=== PATIENT | male | born 1980 | race Caucasian/White ===

== ENCOUNTER 2021-06-10 10:55 | Emergency (ER) | payer OTHER ==
[2021-06-10 13:23] LABS: Absolute Lymphocytes (CBC) 1.8 K/uL (0.7-4.9); Hematocrit 44.8 % (39.6-49.0); Lymphocytes % 24.9 % (15.3-44.8); MPV 8.3 fL (7.6-11.3); RBC Red Blood Cell Count 5.15 M/uL (4.33-5.43)
[2021-06-10 13:33] LABS: Protime INR 1.03
[2021-06-10 13:46] LABS: Potassium 4.2 mmol/L (3.5-5.1)
--- NOTE | 2021-06-10 13:48 | RAD REPORT ---
EXAM DESCRIPTION: CT - Head Brain Wo Cont - 06/10/2021 1:24 pm CLINICAL HISTORY: Headache COMPARISON: None. TECHNIQUE: Axial 5 mm thick images of the head were obtained without IV contrast. All CT scans are performed using dose optimization technique as appropriate and may include automated exposure control or mA/KV adjustment according to patient size. FINDINGS: An intracranial bleed is not seen. Approximately 13 millimeter mass is present within the sella turcica extending superiorly. Ventricles are normal caliber. No extra-axial fluid collection. Chronic maxillary sinusitis. Fluid within the sinuses/mastoids is not seen IMPRESSION: 13 millimeter sellar/suprasellar mass. It is recommended that the patient have a nonemer gent MRI pituitary gland for further evaluation
[2021-06-10] MEDS ORDERED: ACETAMINOPHEN 500 MG TAB ONE (14:03)
[2021-06-10] MEDS ORDERED: NA CHLORIDE 0.9% 1,000 ML ONE (14:03)
[2021-06-10] MEDS ORDERED: KETOROLAC 30 MG/ML INJ ONE (15:55)
--- NOTE | 2021-06-10 17:04 | RAD REPORT ---
EXAM DESCRIPTION: MRI - Brain Wo Cont - 06/10/2021 3:13 pm CLINICAL HISTORY: headache COMPARISON: Head CT June 10, 2021 TECHNIQUE: Axial, sagittal, and coronal magnetic resonance images of the brain were obtained. FINDINGS: 14 millimeter structure is present within the sella turcica extending superiorly. It has h igh signal on T1 weighted sequences. It has high signal on T2 weighted sequences. Without IV contrast is difficult to determine normal pituitary gland from mass. Diffusion-weighted/ADC mapping does not reveal evidence of acute infarction. The ventricles are normal caliber. An extra-axial fluid collection is not noted. Fluid within the sinuses/mastoids is not seen. Mucus retention cysts within the maxillary sinuses. 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 Other consi derations include cystic pituitary macroadenoma and craniopharyngioma . Nonemergent MRI of the pituitary gland recommended for further evaluation
--- NOTE | 2021-06-10 17:26 | ER ---
Nurse's Notes [facility] Name: Haris Dan Age: 40 yrs Sex: Male : 1980 Arrival Date: 06/10/2021 Time: 10:57 Bed Treatment Private MD: Diagnosis: Headache;Sellar/Suprasellar mass Presentation: 06/10 11:27 Chief complaint: Patient states: Pt amb to triage w c/o extreme headache and light ic1 sensitivity since Monday. Also c/o nausea and R lateral side neck soreness. Denies emesis. Coronavirus screen: Vaccine status: Patient reports being unvaccinated. Ebola Screen: No symptoms or risks identified at this time. Initial Sepsis Screen: Does the patient meet any 2 criteria? No. Patient's initial sepsis screen is negative. Does the patient have a suspected source of infection? No. Patient's initial sepsis screen is negative. Risk Assessment: Do you want to hurt yourself or someone else? Patient reports no desire to harm self or others. Onset of symptoms is unknown. 11:27 Method Of Arrival: Ambulatory ic1 11:27 Acuity: JAMEL 3 ic1 Triage Assessment: 11:28 Headache History: Denies prior headaches. General: Appears in no apparent distress. ic1 Behavior is calm, cooperative. Pain: Pain currently is 4 out of 10 on a pain scale. Pain began 4-5 days ago. Neuro: Level of Consciousness is awake, alert, obeys commands, Oriented to person, place, time, situation. 17:43 Pain: Also complains of no other associated symptoms. ld1 Historical: - Allergies: 11:28 No Known Allergies; ic1 - Home Meds: 11:28 Synthroid Oral once daily [Active]; Nexium Oral 1 cap once daily [Active]; ic1 - Immunization history:: Adult Immunizations up to date. - Social history:: Smoking status: Patient reports use of chewing tobacco. Screenin:14 Abuse screen: Denies threats or abuse. Denies injuries from another. Nutritional ic1 screening: No deficits noted. Tuberculosis screening: No symptoms or risk factors identified. Fall Risk None identified. Assessment: 13:38 Reassessment: Patient appears in no apparent distress at this time. Patient is alert, ic1 oriented x 3, equal unlabored respirations, skin warm/dry/pink. Returned back to room from CT. Patient denies pain at this time. Vital Signs: 11:26 BP 151 / 90; Pulse 74; Resp 18; Temp 98.5(O); Pulse Ox 99% ; ic1 Visual Acuity: 14:09 Left Eye Visual acuity 20/20, Pupil size 3 mm, Normal, Brisk; Right Eye Visual acuity ic1 20/25, Pupil size 3 mm, Normal, Brisk; Both Eyes Visual acuity 20/20; Without Lenses; ED Course: 10:57 Patient arrived in ED. as 11:28 Triage completed. ic1 11:30 Arm band placed on right wrist. ic1 12:55 Galo Garcia PA is PHCP. cp 12:55 Isael Manzanares MD is Attending Physician. cp 13:14 Call light in reach. ic1 13:14 BMP Sent. ic1 13:14 PT-INR Sent. ic1 13:14 CBC with Diff Sent. ic1 13:14 Inserted saline lock: 20 gauge in left antecubital area, using aseptic technique. Blood ic1 collected. 13:24 CT Head Brain wo Cont In Process Unspecified. EDMS 15:10 MRI - Brain Wo Cont: pituitary mass In Process Unspecified. EDMS 17:42 IV discontinued, intact, bleeding controlled, No redness/swelling at site. Pressure ic1 dressing applied. 17:43 No provider procedures requiring assistance completed. ld1 Administered Medications: 13:58 CANCELLED (Physician Discretion): Ketorolac 30 mg IVP once cp 14:08 Drug: NS 0.9% 1000 ml Route: IV; Rate: 1 bolus; Site: left antecubital; ic1 14:08 Drug: Tylenol 1000 mg Route: PO; ic1 15:56 Drug: Ketorolac 30 mg Route: IVP; Site: left antecubital; ic1 Outcome: 17:26 Discharge ordered by . cp 17:42 Discharged to home ambulatory. ic1 17:42 Condition: stable 17:42 Discharge instructions given to patient, Instructed on discharge instructions, follow up and referral plans. Demonstrated understanding of instructions, follow-up care, medications, Prescriptions given X 17:45 Patient left the ED. ld1 Signatures: Dispatcher [employer] EDMS Karuna Santillan as Galo Garcia PA PA cp Nanette Lake RN RN ld1 Creggett, Idalmis, RN RN ic1
--- NOTE | 2021-06-10 17:26 | EDPHYS ---
Physician Documentation [facility] Name: Haris Dan Age: 40 yrs Sex: Male : 1980 Arrival Date: 06/10/2021 Time: 10:57 Bed Treatment Private MD: ED Physician Isael Manzanares HPI: 06/10 13:15 This 40 yrs old Male presents to ER via Ambulatory with complaints of Headache. cp 13:15 The patient complains of pain to the top of head and back of head. The patient cp describes the headache as aching. Onset: The symptoms/episode began/occurred 4 day(s) ago. 13:15 Associated signs and symptoms: Pertinent positives: Photophobia Pertinent negatives: cp altered mental status, fever, neck stiffness, paresthesias, sinus congestion, sinus tenderness, vision loss, vomiting, weakness. Severity of symptoms: in the emergency department the pain is unchanged, despite home interventions. Headache History: Denies prior headaches. Historical: - Allergies: 11:28 No Known Allergies; ic1 - Home Meds: 11:28 Synthroid Oral once daily [Active]; Nexium Oral 1 cap once daily [Active]; ic1 - Immunization history:: Adult Immunizations up to date. - Social history:: Smoking status: Patient reports use of chewing tobacco. ROS: 13:20 Constitutional: Negative for body aches, chills, fever, poor PO intake. cp 13:20 Eyes: Negative for injury, pain, redness, and discharge. cp 13:20 ENT: Negative for drainage from ear(s), ear pain, sore throat, difficulty swallowing, difficulty handling secretions. 13:20 Cardiovascular: Negative for chest pain, palpitations. 13:20 Respiratory: Negative for cough, shortness of breath, wheezing. 13:20 Abdomen/GI: Negative for abdominal pain, nausea, vomiting, and diarrhea. 13:20 Neuro: Positive for headache, Negative for altered mental status, numbness, seizure activity, speech changes, weakness. 13:20 All other systems are negative. Exam: 13:25 Constitutional: The patient appears in no acute distress, alert, awake, non-toxic, well cp developed, well nourished. 13:25 Head/Face: Normocephalic, atraumatic. cp 13:25 Eyes: Periorbital structures: appear normal, Pupils: equal, round, and reactive to light and accomodation, Extraocular movements: intact throughout, Conjunctiva: normal, no exudate, no injection, Sclera: no appreciated abnormality, Lids and lashes: appear normal, bilaterally. 13:25 ENT: External ear(s): are unremarkable, Ear canal(s): are normal, clear, TM's: dullness, bilaterally, Nose: is normal, Mouth: Lips: moist, Oral mucosa: moist, Posterior pharynx: Airway: no evidence of obstruction, patent. 13:25 Neck: ROM/movement: pain, that is mild, with any movement, limited range of motion, is not appreciated, Meningeal signs: are not present, nuchal rigidity, is not appreciated, Lymph nodes: no appreciated lymphadenopathy. 13:25 Chest/axilla: Inspection: normal. 13:25 Cardiovascular: Rate: normal, Rhythm: regular. 13:25 Respiratory: the patient does not display signs of respiratory distress, Respirations: normal, no use of accessory muscles, no retractions. 13:25 Abdomen/GI: Exam negative for discomfort, distension, guarding, Inspection: abdomen appears normal. 13:25 Back: pain, is absent, ROM is normal. 13:25 Neuro: Orientation: to person, place \T\ time. Mentation: is normal, Cerebellar function: is grossly normal, Motor: moves all fours, strength is normal, Sensation: is normal, Gait: is steady, at a normal pace, without difficulty. Vital Signs: 11:26 BP 151 / 90; Pulse 74; Resp 18; Temp 98.5(O); Pulse Ox 99% ; ic1 Visual Acuity: 14:09 Left Eye Visual acuity 20/20, Pupil size 3 mm, Normal, Brisk; Right Eye Visual acuity ic1 20/25, Pupil size 3 mm, Normal, Brisk; Both Eyes Visual acuity 20/20; Without Lenses; MDM: 13:03 Patient medically screened. cp 15:00 Differential diagnosis: cluster headache, hyponatremia, meningitis, cp meningoencephalitis, migraine, neoplasm, subarachnoid bleed, subdural hematoma, temporal arteritis, tension headache. 17:25 Data reviewed: vital signs, nurses notes, lab test result(s), radiologic studies, CT cp scan, MRI. 17:25 Counseling: I had a detailed discussion with the patient and/or guardian regarding: the cp historical points, exam findings, and any diagnostic results supporting the discharge/admit diagnosis, lab results, radiology results, the need for outpatient follow up, for definitive care, a neurosurgeon. Response to treatment: the patient's symptoms have mildly improved after treatment, and as a result, I will discharge patient. ED course: VSS. Mild improvement in MCWILLIAMS with meds, but patient unaccompanied to ED so unable to give sedating meds to treat MCWILLIAMS. Discussed results of CT and MRI and need for urgent f/u with neurosurgery. Will discharge to home for continued monitoring. 06/10 13:03 Order name: CBC with Diff; Complete Time: 13:32 cp 06/10 13:03 Order name: BMP; Complete Time: 13:57 cp 06/10 17:11 Interpretation: Normal except: CL 108; GFR 68. cp 06/10 13:03 Order name: CT Head Brain wo Cont; Complete Time: 13:57 cp 06/10 13:03 Order name: PT-INR; Complete Time: 13:57 cp 06/10 14:45 Order name: MRI - Brain Wo Cont: pituitary mass; Complete Time: 17:10 cp 06/10 13:03 Order name: IV; Complete Time: 13:14 cp 06/10 13:58 Order name: Visual Acuity; Complete Time: 14:09 cp Administered Medications: 13:58 CANCELLED (Physician Discretion): Ketorolac 30 mg IVP once cp 14:08 Drug: NS 0.9% 1000 ml Route: IV; Rate: 1 bolus; Site: left antecubital; ic1 14:08 Drug: Tylenol 1000 mg Route: PO; ic1 15:56 Drug: Ketorolac 30 mg Route: IVP; Site: left antecubital; ic1 Disposition: 18:28 Co-signature as Attending Physician, Isael Manzanares MD I agree with the assessment and kdr plan of care. Disposition Summary: 06/10/21 17:26 Discharge Ordered Location: Home cp Problem: new cp Symptoms: have improved cp Condition: Stable cp Diagnosis - Headache cp - Sellar/Suprasellar mass cp Followup: cp - With: Private Physician - When: 2 - 3 days - Reason: Recheck today's complaints Discharge Instructions: - Discharge Summary Sheet cp - Pituitary Tumors cp Forms: - Medication Reconciliation Form cp - Thank You Letter cp - Antibiotic Education cp - Prescription Opioid Use cp Prescriptions: - Fioricet 50-300-40 mg Oral capsule - take 1 capsule by ORAL route every 4 hours as needed; 30 capsule; Refills: 0, cp Product Selection Permitted - Reglan 10 mg Oral Tablet - take 1 tablet by ORAL route every 6 hours take 30 minutes before meals and at cp bedtime; 20 tablet; Refills: 0, Product Selection Permitted Signatures: Dispatcher [employer] EDMS Isael Manzanares MD MD kdr Page, Corey, PA PA cp Idalmis Norwood, RN RN ic1 Corrections: (The following items were deleted from the chart) 13:04 13:03 BASIC METABOLIC PANEL+C.LAB.BRZ ordered. EDMS EDMS 13:04 13:03 PROTIME (+INR)+COAG.LAB.BRZ ordered. EDMS EDMS 13:58 13:58 Ketorolac 30 mg IVP once ordered. cp cp
[2021-06-10 17:49] VITALS: BP 151/90; TEMP 98.5; O2SAT 99
== END 2021-06-10 17:45 | disposition home or self-care (01) ==
LOC: ER 10:55
DX: R51.9 Headache, unspecified (principal); E23.6 Other disorders of pituitary gland
CPT/HCPCS: 85025; 80048; 36415; 85610; 70450; 70551; 96374; 99284; J7030